=== PATIENT | female | born 1935 | race Caucasian/White ===

== ENCOUNTER 2023-08-04 22:24 | Inpatient (IN) | payer MEDICARE ==
[2023-08-04 22:58] LABS: #Monocytes 0.7 10x3/uL (0.0-1.1); #Neutrophils 5.8 10x3/uL (1.5-8.4); %Basophils 0.2 % (0.0-2.0); %Eosinophils 0.1 % (0.0-6.0); %Lymphocytes 22.5 % (18.0-47.0); %Monocytes 8.6 % (0.0-10.0); %Neutrophils 68.2 % (40.0-75.0); Hematocrit 34.7 % (34.9-44.5); Hemoglobin 11.8 g/dL (12.0-15.5); Mean Corpuscular Hemoglobin 31.7 pg (27.0-33.0); Mean Corpuscular Volume 93.3 fl (81.6-98.3); Mean Platelet Volume 10.1 fl (7.4-10.4); Platelet Count 463 10x3/uL (150-450); RBC Distribution Width 13.3 % (11.5-14.5); Red Blood Cell (RBC) Count 3.72 10x6/uL (3.90-5.03); White Blood Cell (WBC) Count 8.5 10x3/uL (3.5-10.5)
[2023-08-04 23:08] LABS: ALT (SGPT) 16 U/L (8-55); AST (SGOT) 20 U/L (5-34); Albumin 3.2 g/dL (3.4-4.8); Alkaline Phosphatase 72 U/L (40-110); Anion Gap 18 mmol/L (10-20); BUN (Urea Nitrogen) 24 mg/dL (9.8-20.1); Bilirubin, Total 0.9 mg/dL (0.2-1.2); CK (CPK) 138 U/L (29-168); Calc. Creatinine Clearance 0 mL/min (70-130); Calcium 8.8 mg/dL (7.8-10.44); Carbon Dioxide 25 mmol/L (23-31); Chloride 95 mmol/L (98-107); Estimated GFR 63; Globulin 2.8 g/dL (2.4-3.5); Glucose 159 mg/dL (83-110); Potassium 4.4 mmol/L (3.5-5.1); Sodium 134 mmol/L (136-145)
[2023-08-04 23:15] LABS: Troponin I 0.036 ng/mL (< 0.028)
[2023-08-04 23:24] LABS: Bilirubin Neg (Negative); Blood, Urine 250 (Negative); Clarity Slightly Cloudy (Clear); Glucose, Urine (Dipstick) Normal (Negative); Ketone, Urine 5 mg/dL (Negative); Leukocyte 500 (Negative); Nitrite Negative (Negative); Protein, Urine (Dipstick) 30 mg/dl (Neg-Trace); Specific Gravity, Urine 1.015 (1.005-1.030); Urobilinogen Normal mg/dL (Less than 2)
[2023-08-04 23:26] LABS: Lipase Less than 4 U/L (8-78)
[2023-08-04 23:30] LABS: CAUTI Indications for Culture Pelvic or flank pain; Squamous Epithelial 0-3 HPF (0-3)
[2023-08-04 23:31] LABS: Bacteria/HPF 3+ HPF (None Seen)
[2023-08-04 23:32] LABS: Urine Culture Reflex Yes Yes
[2023-08-05 00:04] LABS: SARS-CoV-2 NAA Rapid Test Not Detected (NotDetected)
[2023-08-05] MEDS ORDERED: Mag-Al Plus 1200 MG/1200 MG/120 MG/30 ML UDCUP PO PRN (00:24)
[2023-08-05] MEDS ORDERED: Milk Of Magnesia 30 ML UDCUP PO PRN (00:24)
[2023-08-05] MEDS ORDERED: Apixaban 2.5 MG TAB PO SCH (00:45)
[2023-08-05 00:49] LABS: Magnesium 1.9 mg/dL (1.6-2.6)
[2023-08-05] MEDS: Sodium Chloride 0.9% 1,000 ML IV SCH (01:12)
[2023-08-05 04:12] LABS: #Monocytes 0.8 10x3/uL (0.0-1.1); #Neutrophils 5.8 10x3/uL (1.5-8.4); %Basophils 0.4 % (0.0-2.0); %Eosinophils 0.2 % (0.0-6.0); %Lymphocytes 19.1 % (18.0-47.0); %Monocytes 9.7 % (0.0-10.0); %Neutrophils 70.2 % (40.0-75.0); Hematocrit 33.4 % (34.9-44.5); Hemoglobin 11.2 g/dL (12.0-15.5); Mean Corpuscular HGB CONC 33.5 g/dL (32.0-36.0); Mean Corpuscular Hemoglobin 31.6 pg (27.0-33.0); Mean Corpuscular Volume 94.4 fl (81.6-98.3); Mean Platelet Volume 10.1 fl (7.4-10.4); Platelet Count 434 10x3/uL (150-450); RBC Distribution Width 13.3 % (11.5-14.5); Red Blood Cell (RBC) Count 3.54 10x6/uL (3.90-5.03); White Blood Cell (WBC) Count 8.2 10x3/uL (3.5-10.5)
[2023-08-05 04:20] LABS: Anion Gap 18 mmol/L (10-20); BUN (Urea Nitrogen) 21 mg/dL (9.8-20.1); Calc. Creatinine Clearance 36 mL/min (70-130); Calcium 8.6 mg/dL (7.8-10.44); Carbon Dioxide 24 mmol/L (23-31); Chloride 97 mmol/L (98-107); Estimated GFR 70; Glucose 148 mg/dL (83-110); Sodium 135 mmol/L (136-145)
[2023-08-05 04:28] LABS: Troponin I 0.027 ng/mL (< 0.028)
[2023-08-05] MEDS: metFORMIN 500 MG TAB PO SCH (08:11)
[2023-08-05] MEDS: Apixaban 2.5 MG TAB PO SCH ×2 (08:11→22:13)
[2023-08-05] MEDS ORDERED: HYDROcodone/Acetaminophen 5/325 mg Tablet PO PRN (08:29)
[2023-08-05] MEDS ORDERED: FLU VACC QS2023(65UP)/MF59C/PF 60 MCG/0.5 ML SYRINGE IM ONE (09:00)
[2023-08-05 12:48] LABS: Digoxin 0.83 ng/mL (0.8-2.0)
[2023-08-05] MEDS: cefTRIAXone\\ROCEPHIN 1 GM in Sodium Chloride 0.9% 100 ML IVPB SCH (18:01)
[2023-08-06] MEDS ORDERED: Metoprolol Tartrate 25 MG TAB PO SCH (02:00)
[2023-08-06 03:48] LABS: Anion Gap 13 mmol/L (10-20); BUN (Urea Nitrogen) 17 mg/dL (9.8-20.1); Calc. Creatinine Clearance 39 mL/min (70-130); Calcium 8.3 mg/dL (7.8-10.44); Carbon Dioxide 26 mmol/L (23-31); Chloride 101 mmol/L (98-107); Estimated GFR 72; Glucose 157 mg/dL (83-110); Potassium 3.8 mmol/L (3.5-5.1); Sodium 136 mmol/L (136-145)
[2023-08-06 03:50] LABS: #Monocytes 0.8 10x3/uL (0.0-1.1); #Neutrophils 5.9 10x3/uL (1.5-8.4); %Basophils 0.4 % (0.0-2.0); %Eosinophils 0.4 % (0.0-6.0); %Monocytes 10.1 % (0.0-10.0); %Neutrophils 74.7 % (40.0-75.0); Hematocrit 35.5 % (34.9-44.5); Hemoglobin 12.1 g/dL (12.0-15.5); Mean Corpuscular HGB CONC 34.1 g/dL (32.0-36.0); Mean Corpuscular Hemoglobin 32.1 pg (27.0-33.0); Mean Corpuscular Volume 94.2 fl (81.6-98.3); Mean Platelet Volume 9.9 fl (7.4-10.4); Platelet Count 482 10x3/uL (150-450); RBC Distribution Width 13.5 % (11.5-14.5); Red Blood Cell (RBC) Count 3.77 10x6/uL (3.90-5.03); White Blood Cell (WBC) Count 7.9 10x3/uL (3.5-10.5)
[2023-08-06] MEDS: Apixaban 2.5 MG TAB PO SCH ×2 (09:33→21:41)
[2023-08-06] MEDS: metFORMIN 500 MG TAB PO SCH (09:33)
[2023-08-06] MEDS ORDERED: dilTIAZem CD 120 MG CAP PO SCH (10:15)
[2023-08-06] MEDS: Sodium Chloride 0.9% 1,000 ML IV SCH (13:48)
[2023-08-06 14:26] LABS: Magnesium 1.6 mg/dL (1.6-2.6)
[2023-08-06] MEDS: cefTRIAXone\\ROCEPHIN 1 GM in Sodium Chloride 0.9% 100 ML IVPB SCH (18:14)
[2023-08-06] MEDS: Acetaminophen 325 MG TAB PO PRN (18:14)
[2023-08-07 04:43] LABS: #Eosinphils 0.1 10x3/uL (0.0-0.5); #Monocytes 0.8 10x3/uL (0.0-1.1); #Neutrophils 6.3 10x3/uL (1.5-8.4); %Basophils 0.5 % (0.0-2.0); %Eosinophils 0.8 % (0.0-6.0); %Lymphocytes 16.5 % (18.0-47.0); %Neutrophils 72.7 % (40.0-75.0); Hematocrit 34.3 % (34.9-44.5); Mean Corpuscular Hemoglobin 32.9 pg (27.0-33.0); Mean Platelet Volume 10.2 fl (7.4-10.4); Platelet Count 467 10x3/uL (150-450); RBC Distribution Width 13.8 % (11.5-14.5); Red Blood Cell (RBC) Count 3.65 10x6/uL (3.90-5.03); White Blood Cell (WBC) Count 8.6 10x3/uL (3.5-10.5)
[2023-08-07 04:46] LABS: Anion Gap 16 mmol/L (10-20); BUN (Urea Nitrogen) 13 mg/dL (9.8-20.1); Calc. Creatinine Clearance 44 mL/min (70-130); Calcium 8.4 mg/dL (7.8-10.44); Carbon Dioxide 22 mmol/L (23-31); Chloride 102 mmol/L (98-107); Estimated GFR 83; Glucose 127 mg/dL (83-110); Potassium 4.1 mmol/L (3.5-5.1); Sodium 136 mmol/L (136-145)
[2023-08-07] MEDS: Sodium Chloride 0.9% 1,000 ML IV SCH ×2 (05:52→09:36)
[2023-08-07] MEDS: Apixaban 2.5 MG TAB PO SCH ×2 (09:34→23:01)
[2023-08-07] MEDS: metFORMIN 500 MG TAB PO SCH (09:34)
[2023-08-07] MEDS: dilTIAZem CD 120 MG CAP PO SCH (09:34)
[2023-08-07] MEDS: cefTRIAXone\\ROCEPHIN 1 GM in Sodium Chloride 0.9% 100 ML IVPB SCH (18:14)
[2023-08-07] MEDS: Mirtazapine 15 MG TAB PO SCH (23:01)
[2023-08-07] MEDS: Acetaminophen 325 MG TAB PO PRN (23:01)
[2023-08-08 05:49] LABS: #Eosinphils 0.1 10x3/uL (0.0-0.5); #Monocytes 0.8 10x3/uL (0.0-1.1); #Neutrophils 5.7 10x3/uL (1.5-8.4); %Basophils 0.2 % (0.0-2.0); %Eosinophils 1.7 % (0.0-6.0); %Lymphocytes 20.6 % (18.0-47.0); %Monocytes 9.6 % (0.0-10.0); %Neutrophils 67.5 % (40.0-75.0); Hematocrit 32.6 % (34.9-44.5); Hemoglobin 10.8 g/dL (12.0-15.5); Mean Corpuscular HGB CONC 33.1 g/dL (32.0-36.0); Mean Corpuscular Hemoglobin 31.2 pg (27.0-33.0); Mean Corpuscular Volume 94.2 fl (81.6-98.3); Mean Platelet Volume 9.8 fl (7.4-10.4); Platelet Count 459 10x3/uL (150-450); RBC Distribution Width 13.8 % (11.5-14.5); Red Blood Cell (RBC) Count 3.46 10x6/uL (3.90-5.03); White Blood Cell (WBC) Count 8.5 10x3/uL (3.5-10.5)
[2023-08-08 05:55] LABS: Anion Gap 14 mmol/L (10-20); BUN (Urea Nitrogen) 13 mg/dL (9.8-20.1); Calc. Creatinine Clearance 41 mL/min (70-130); Calcium 8.4 mg/dL (7.8-10.44); Carbon Dioxide 25 mmol/L (23-31); Chloride 101 mmol/L (98-107); Estimated GFR 75; Glucose 161 mg/dL (83-110); Potassium 4.6 mmol/L (3.5-5.1); Sodium 135 mmol/L (136-145)
[2023-08-08] MEDS: metFORMIN 500 MG TAB PO SCH (08:10)
[2023-08-08] MEDS: dilTIAZem CD 120 MG CAP PO SCH (09:25)
[2023-08-08] MEDS: Nitrofurantoin Monohyd/M-Cryst 100 MG CAP PO SCH ×2 (09:25→22:43)
[2023-08-08] MEDS: Apixaban 2.5 MG TAB PO SCH ×2 (09:26→22:24)
[2023-08-08] MEDS: Mirtazapine 15 MG TAB PO SCH (22:24)
[2023-08-09] MEDS ORDERED: Metoprolol Tartrate 25 MG TAB PO SCH (01:00)
[2023-08-09 04:31] LABS: #Monocytes 0.9 10x3/uL (0.0-1.1); #Neutrophils 6.3 10x3/uL (1.5-8.4); %Basophils 0.5 % (0.0-2.0); %Eosinophils 0.5 % (0.0-6.0); %Lymphocytes 18.2 % (18.0-47.0); %Monocytes 9.6 % (0.0-10.0); %Neutrophils 70.9 % (40.0-75.0); Hematocrit 34.7 % (34.9-44.5); Hemoglobin 11.7 g/dL (12.0-15.5); Mean Corpuscular HGB CONC 33.7 g/dL (32.0-36.0); Mean Corpuscular Hemoglobin 31.2 pg (27.0-33.0); Mean Corpuscular Volume 92.5 fl (81.6-98.3); Mean Platelet Volume 9.9 fl (7.4-10.4); Platelet Count 491 10x3/uL (150-450); RBC Distribution Width 13.8 % (11.5-14.5); Red Blood Cell (RBC) Count 3.75 10x6/uL (3.90-5.03); White Blood Cell (WBC) Count 8.9 10x3/uL (3.5-10.5)
[2023-08-09 04:33] LABS: Anion Gap 16 mmol/L (10-20); BUN (Urea Nitrogen) 11 mg/dL (9.8-20.1); Calc. Creatinine Clearance 39 mL/min (70-130); Calcium 8.6 mg/dL (7.8-10.44); Carbon Dioxide 23 mmol/L (23-31); Chloride 100 mmol/L (98-107); Estimated GFR 77; Glucose 153 mg/dL (83-110); Potassium 4.5 mmol/L (3.5-5.1); Sodium 134 mmol/L (136-145)
[2023-08-09] MEDS: dilTIAZem CD 120 MG CAP PO SCH (08:49)
[2023-08-09] MEDS: Apixaban 2.5 MG TAB PO SCH ×2 (08:49→21:48)
[2023-08-09] MEDS: metFORMIN 500 MG TAB PO SCH (08:49)
[2023-08-09] MEDS: Nitrofurantoin Monohyd/M-Cryst 100 MG CAP PO SCH ×2 (08:50→21:48)
[2023-08-09] MEDS: Magnesium Oxide 400 MG TAB PO SCH (08:53)
[2023-08-09] MEDS: Acetaminophen 325 MG TAB PO PRN (09:07)
[2023-08-09] MEDS ORDERED: Lactated Ringer's 1,000 ML IV SCH (11:30)
[2023-08-09 15:43] VITALS: BMI 19.2
[2023-08-09] MEDS: Mirtazapine 15 MG TAB PO SCH (21:48)
[2023-08-10] MEDS: Acetaminophen 325 MG TAB PO PRN (01:46)
[2023-08-10 04:03] LABS: #Eosinphils 0.1 10x3/uL (0.0-0.5); #Monocytes 0.8 10x3/uL (0.0-1.1); #Neutrophils 7.1 10x3/uL (1.5-8.4); %Basophils 0.3 % (0.0-2.0); %Eosinophils 0.9 % (0.0-6.0); %Lymphocytes 12.9 % (18.0-47.0); %Monocytes 8.2 % (0.0-10.0); %Neutrophils 77.4 % (40.0-75.0); Hematocrit 33.7 % (34.9-44.5); Hemoglobin 11.4 g/dL (12.0-15.5); Mean Corpuscular HGB CONC 33.8 g/dL (32.0-36.0); Mean Corpuscular Hemoglobin 31.8 pg (27.0-33.0); Mean Corpuscular Volume 93.9 fl (81.6-98.3); Mean Platelet Volume 9.9 fl (7.4-10.4); Platelet Count 478 10x3/uL (150-450); RBC Distribution Width 13.7 % (11.5-14.5); Red Blood Cell (RBC) Count 3.59 10x6/uL (3.90-5.03); White Blood Cell (WBC) Count 9.2 10x3/uL (3.5-10.5)
[2023-08-10 04:16] LABS: Anion Gap 15 mmol/L (10-20); BUN (Urea Nitrogen) 12 mg/dL (9.8-20.1); Calc. Creatinine Clearance 38 mL/min (70-130); Calcium 8.4 mg/dL (7.8-10.44); Carbon Dioxide 24 mmol/L (23-31); Chloride 100 mmol/L (98-107); Estimated GFR 75; Glucose 211 mg/dL (83-110); Potassium 4.6 mmol/L (3.5-5.1); Sodium 134 mmol/L (136-145)
[2023-08-10] MEDS: Apixaban 2.5 MG TAB PO SCH (08:49)
[2023-08-10] MEDS: Magnesium Oxide 400 MG TAB PO SCH (08:49)
[2023-08-10] MEDS: metFORMIN 500 MG TAB PO SCH (08:49)
[2023-08-10] MEDS: dilTIAZem CD 120 MG CAP PO SCH (08:49)
[2023-08-10] MEDS: Nitrofurantoin Monohyd/M-Cryst 100 MG CAP PO SCH (08:50)
[2023-08-10] MEDS ORDERED: hydrALAZINE 20 MG/ML VIAL SLOW IVP PRN (08:50)
[2023-08-10] MEDS ORDERED: Losartan 25 MG TAB PO SCH (09:00)
[2023-08-10 13:01] VITALS: BP 166/91; TEMP 98
== END 2023-08-10 14:10 | DRG 309 ==
LOC: CSHERS 22:24 → CSHICU 08-05 00:12 → CSHTELE 08-05 12:40 → OBSVTOIN 08-07 10:08
PROVIDERS: ADMIT Family Medicine; ATTEND Internal Medicine
DX: I48.11 Longstanding persistent atrial fibrillation (principal); N39.0 Urinary tract infection, site not specified; S32.019A Unspecified fracture of first lumbar vertebra, initial encounter for closed fracture; Z68.1 Body mass index [BMI] 19.9 or less, adult; Z66 Do not resuscitate; R00.1 Bradycardia, unspecified; I48.92 Unspecified atrial flutter; R63.0 Anorexia; R29.6 Repeated falls; R62.7 Adult failure to thrive; B96.1 Klebsiella pneumoniae [K. pneumoniae] as the cause of diseases classified elsewhere; F03.90 Unspecified dementia, unspecified severity, without behavioral disturbance, psychotic disturbance, mood disturbance, and anxiety; I10 Essential (primary) hypertension; E11.9 Type 2 diabetes mellitus without complications; K21.9 Gastro-esophageal reflux disease without esophagitis; E78.5 Hyperlipidemia, unspecified; Z98.890 Other specified postprocedural states; Z11.52 Encounter for screening for COVID-19; Z79.899 Other long term (current) drug therapy; Z90.710 Acquired absence of both cervix and uterus; Z83.3 Family history of diabetes mellitus; Z86.73 Personal history of transient ischemic attack (TIA), and cerebral infarction without residual deficits
CPT/HCPCS: 36415; 36416; 80048; 80053; 80162; 81001; 82550; 83605; 83690; 83735; 83880; 84443; 84484; 85025; 87040; 87077; 87086; 87186; 93005; 93010; 93306; 94760; 94762; 96374; 96376; G0378; J0696; J3490; J7050; J7120